=== PATIENT | female | born 1965 | race Asian ===

== ENCOUNTER 2021-03-24 13:17 | Emergency (ER) | payer OTHER ==
[2021-03-24 13:32] VITALS: TEMP 97.8; BMI 18.8
[2021-03-24] MEDS ORDERED: SODIUM CHLORIDE 0.9% 1000 ML INFUS.BAG IV ONE (14:09)
[2021-03-24] MEDS ORDERED: ACETAMINOPHEN 1000 MG/100 ML VIAL (NON FORMULARY) IVPB ONE (14:09)
[2021-03-24] MEDS ORDERED: ACETAMINOPHEN INJECTION 100 ML IVPB ONE (14:16)
[2021-03-24 14:52] LABS: CALCIUM 8.6 mg/dl (8.5-10); CREATININE 0.6 mg/dl (0.55-1.3); TOT PROT 6.3 g/dl (6.4-8.2)
[2021-03-24 14:53] LABS: BASO % 4.4 % (0-2.0); EOS % 8.3 % (0-4.5); HEMATOCRIT 35.6 % (32.4-45.2); HEMOGLOBIN 11.9 GM/dl (10.7-15.3); LYMPH % 26.1 % (8-40); MCHC 33.5 g/dl (32.0-36.0); MEAN CELL VOLUME 89.5 fl (80-96); MEAN PLT VOLUME 8.9 fl (7.5-11.1); MONO % 5.8 % (3.8-10.2); NEUT % 55.4 % (42.8-82.8); PLATELET COUNT 184 10^3/uL (134-434); RBC 3.97 M/mm3 (3.60-5.2); RDW 12.3 % (11.6-15.6); WHITE BLOOD COUNT 3.5 K/mm3 (4.0-10.8)
[2021-03-24 16:42] VITALS: PULSE 62
[2021-03-24 16:52] VITALS: BP 124/70
== END 2021-03-24 18:58 | disposition home or self-care (01) ==
LOC: FER 13:17
PROC: 3E0333Z Introduction of Anti-inflammatory into Peripheral Vein, Percutaneous Approach (ICD-10-PCS; principal; 2021-03-24)
DX: K59.00 Constipation, unspecified (principal)
CPT/HCPCS: 36415; 74177-TC; 80053; 81003; 85025; 87086; 99285-25; J0131

== ENCOUNTER 2021-04-01 02:23 | Emergency (ER) | payer OTHER ==
[2021-04-01 02:35] VITALS: BMI 18.8
[2021-04-01] MEDS ORDERED: SODIUM CHLORIDE 0.9% 1000 ML INFUS.BAG IV ONE (02:45)
[2021-04-01 03:32] LABS: BASO % 0.9 % (0-2.0); HEMATOCRIT 38.2 % (32.4-45.2); LYMPH % 26.7 % (8-40); MCHC 33.9 g/dl (32.0-36.0); MEAN CELL VOLUME 88.3 fl (80-96); MEAN PLT VOLUME 9.1 fl (7.5-11.1); MONO % 6.4 % (3.8-10.2); PLATELET COUNT 215 10^3/uL (134-434); RBC 4.33 M/mm3 (3.60-5.2); RDW 12.9 % (11.6-15.6); WHITE BLOOD COUNT 4.9 K/mm3 (4.0-10.0)
[2021-04-01 03:38] LABS: URINE APPEARANCE CLEAR; URINE BILIRUBIN NEGATIVE (NEGATIVE); URINE COLOR YELLOW; URINE GLUCOSE (UA) NEGATIVE (NEGATIVE); URINE KETONE NEGATIVE (NEGATIVE); URINE LEUK ESTERASE NEGATIVE (NEGATIVE); URINE NITRITE NEGATIVE (NEGATIVE); URINE PROTEIN NEGATIVE (NEGATIVE)
[2021-04-01 03:39] LABS: INR 0.95 (0.83-1.09); PROTHROMBIN TIME (PATIENT) 11.7 SEC (9.7-13.0)
[2021-04-01 03:41] LABS: ACTIVATED PTT 27.7 SECONDS (25.2-36.5)
[2021-04-01 04:01] LABS: ALBUMIN 4.2 g/dl (3.4-5.0); BLOOD UREA NITROGEN 16.9 mg/dL (7-18); CALCIUM 9.4 mg/dL (8.5-10.1)
[2021-04-01 04:05] LABS: CREATININE 0.8 mg/dL (0.55-1.3)
[2021-04-01 04:06] LABS: BILIRUBIN,TOTAL 0.5 mg/dL (0.2-1)
[2021-04-01] MEDS ORDERED: SODIUM PHOSPHATE/NA BIPHOS 133 ML ENEMA PR ONE (04:19)
[2021-04-01] MEDS ORDERED: MAGNESIUM CITRATE 300 ML BOTTLE PO ONE (04:19)
[2021-04-01] MEDS ORDERED: KETOROLAC TROMETHAMINE 15 MG/ML VIAL IVPUSH ONE (04:38)
[2021-04-01] MEDS ORDERED: KETOROLAC TROMETHAMINE 15 MG/ML VIAL ONE (04:50)
[2021-04-01 05:30] VITALS: BP 121/75; PULSE 81; TEMP 98.7
== END 2021-04-01 05:31 | disposition home or self-care (01) ==
LOC: FER 02:23
PROC: 3E0333Z Introduction of Anti-inflammatory into Peripheral Vein, Percutaneous Approach (ICD-10-PCS; principal; 2021-04-01)
DX: K59.00 Constipation, unspecified (principal)
CPT/HCPCS: 36415; 71045-TC-FY; 74018-TC-FY; 76705-TC; 80053; 81003; 83605; 83690; 85025; 85610; 85730; 99285-25; C9803; U0003; U0005

== ENCOUNTER 2023-03-12 20:20 | Emergency (ER) | payer OTHER ==
[2023-03-12 20:45] VITALS: BP 117/71; PULSE 90; RESP 18; TEMP 97.6; BMI 18.8
[2023-03-12 20:57] LABS: HEMATOCRIT 41.1 % (32.4-45.2); HEMOGLOBIN 13.9 G/dL (10.7-15.3); MCH 31.5 pg (25.7-33.7); MCHC 33.7 g/dl (32.0-36.0); MEAN CELL VOLUME 93.6 fl (80-96); MEAN PLT VOLUME 8.7 fl (7.5-11.1); PLATELET COUNT 192.8 10^3/uL (134-434); RBC 4.39 10^6/uL (3.60-5.2); RDW 13.2 % (11.6-15.6); WHITE BLOOD COUNT 4.3 10^3/uL (4.0-10.8)
[2023-03-12 21:16] LABS: ALBUMIN 4.3 g/dl (3.4-5.0); BILIRUBIN,TOTAL 1.2 mg/dl (0.2-1); BLOOD UREA NITROGEN 15.7 mg/dl (7-18); CALCIUM 8.8 mg/dl (8.5-10.1); CREATININE 0.7 mg/dl (0.6-1.3); POTASSIUM 3.6 mmol/L (3.5-5.1); SGOT/AST 13.6 U/L (15-37); SGPT/ALT 6.2 U/L (7-52); TOT PROT 6.3 g/dl (6.4-8.2)
== END 2023-03-12 21:35 | disposition home or self-care (01) ==
LOC: FER 20:20
DX: R79.0 Abnormal level of blood mineral (principal)
CPT/HCPCS: 36415; 80053; 83735; 85027; 99283-25

== ENCOUNTER 2024-02-26 16:48 | Emergency (ER) | payer OTHER ==
[2024-02-26 16:57] VITALS: BP 140/79; PULSE 83; RESP 20; TEMP 98.4; BMI 16.9
[2024-02-26] MEDS ORDERED: ACETAMINOPHEN INJECTION 100 ML IVPB ONE (17:14)
[2024-02-26] MEDS ORDERED: ONDANSETRON 4 MG/2 ML VIAL ONE (17:14)
[2024-02-26] MEDS: SODIUM CHLORIDE 0.9% 1000 ML INFUS.BAG IV ONE ×2 (17:30→18:50)
[2024-02-26] MEDS: ONDANSETRON 4 MG/2 ML VIAL IVPUSH ONE (17:35)
[2024-02-26] MEDS: ACETAMINOPHEN 1000 MG/100 ML BAG IVPB ONE (17:42)
[2024-02-26 17:47] LABS: HEMATOCRIT 36.4 % (32.4-45.2); HEMOGLOBIN 12.3 G/dL (10.7-15.3); MCH 32.1 pg (25.7-33.7); MCHC 33.9 g/dl (32.0-36.0); MEAN CELL VOLUME 94.5 fl (80-96); MEAN PLT VOLUME 8.6 fl (7.5-11.1); RBC 3.85 10^6/uL (3.60-5.2); RDW 12.9 % (11.6-15.6); WHITE BLOOD COUNT 4.1 10^3/uL (4.0-10.8)
[2024-02-26] MEDS: FAMOTIDINE 20 MG/50 ML IVPB 20 MG/50 ML MG IVPB ONE (17:50)
[2024-02-26 18:28] LABS: ALBUMIN 4.3 g/dl (3.4-5.0); ALK PHOS 73 U/L (45-117); ANION GAP 7 mmol/L (4-13); BILIRUBIN,TOTAL 1.1 mg/dl (0.2-1); CHLORIDE 98 mmol/L (98-107); CO2 23 mmol/L (21-32); CREATININE 0.6 mg/dl (0.6-1.3); GLUCOSE,RANDOM 97 mg/dl (74-106); MAGNESIUM 2.1 mg/dL (1.8-2.4); POTASSIUM 3.7 mmol/L (3.5-5.1); SGOT/AST 15 U/L (15-37); SGPT/ALT 3 U/L (7-52); SODIUM 128 mmol/L (136-145); TOT PROT 5.8 g/dl (6.4-8.2)
[2024-02-26] MEDS ORDERED: METOCLOPRAMIDE HCL INJECTION 10 MG/2 ML VIAL ONE (18:54)
[2024-02-26] MEDS: METOCLOPRAMIDE HCL INJECTION 10 MG/2 ML VIAL IVPUSH ONE (19:00)
== END 2024-02-26 20:47 | disposition home or self-care (01) ==
LOC: FER 16:48
PROC: 3E033GC Introduction of Other Therapeutic Substance into Peripheral Vein, Percutaneous Approach (ICD-10-PCS; principal; 2024-02-26)
PROC: 3E033NZ Introduction of Analgesics, Hypnotics, Sedatives into Peripheral Vein, Percutaneous Approach (ICD-10-PCS; 2024-02-26)
PROC: 3E033GC Introduction of Other Therapeutic Substance into Peripheral Vein, Percutaneous Approach (ICD-10-PCS; 2024-02-26)
PROC: 3E033GC Introduction of Other Therapeutic Substance into Peripheral Vein, Percutaneous Approach (ICD-10-PCS; 2024-02-26)
DX: R11.2 Nausea with vomiting, unspecified (principal); R42 Dizziness and giddiness; Z20.822 Contact with and (suspected) exposure to COVID-19
CPT/HCPCS: 0241U-QW; 36415; 71045-TC-FY; 80053; 83690; 83735; 84484; 85027; 93005; 99285-25; J0131